=== PATIENT | male | born 1985 | race Caucasian/White ===

== ENCOUNTER 2020-05-26 20:10 | Emergency (ER) | payer BC ==
[2020-05-26] MEDS ORDERED: Bacitracin Oint 1 GM U/D Packet TOP ONE (20:38)
[2020-05-26] MEDS ORDERED: Lidocaine 1% with EPINEPHrine 1:100,000 50 ML MDV INFILT ONE (20:38)
[2020-05-26] MEDS ORDERED: Diphtheria,Pertussis(Acell),Tetanus Vaccine 0.5 ML SDV IM ONE (20:38)
--- NOTE | 2020-05-26 20:55 | EDM.PDOC ---
ED HPI GENERAL MEDICAL PROBLEM - General Chief Complaint: Laceration Stated Complaint: CUT L THUMB Time Seen by Provider: 05/26/20 20:24 Source of Information: Reports: Patient History Limitations: Reports: No Limitations - History of Present Illness INITIAL COMMENTS - FREE TEXT/NARRATIVE: 34 yo male presents to ER with laceration to the tip of his left thumb. generally healthy. needs tetanus updated - Related Data Allergies Allergy/AdvReac Type Severity Reaction Status Date / Time No Known Allergies Allergy Verified 05/26/20 20:29 Home Meds: Home Meds NK [No Known Home Meds] 05/26/20 [History] Past Medical History HEENT History: Reports: None Cardiovascular History: Reports: None Respiratory History: Reports: None Gastrointestinal History: Reports: None Genitourinary History: Reports: None Musculoskeletal History: Reports: Fracture Neurological History: Reports: None Psychiatric History: Reports: None Endocrine/Metabolic History: Reports: None Hematologic History: Reports: None Immunologic History: Reports: None Oncologic (Cancer) History: Reports: None Dermatologic History: Reports: None - Infectious Disease History Infectious Disease History: Reports: None Social & Family History - Tobacco Use Smoking Status *Q: Never Smoker - Caffeine Use Caffeine Use: Reports: Coffee, Energy Drinks, Soda, Tea - Recreational Drug Use Recreational Drug Use: No ED ROS GENERAL - Review of Systems Review Of Systems: See Below Constitutional: Denies: Fever, Chills, Fatigue Respiratory: Denies: Shortness of Breath, Wheezing Cardiovascular: Denies: Chest Pain ED EXAM, SKIN/RASH Exam: See Below Text/Narrative:: exam limited to left hand Exam Limited By: No Limitations General Appearance: Alert, WD/WN, No Apparent Distress Respiratory/Chest: No Respiratory Distress ED SKIN PROCEDURES - Laceration/Wound Repair Left Distal Digit - 1st (Thumb) Appearance: Superficial, Subcutaneous Distal NVT: Neuro & Vascular Intact, No Tendon Injury Anesthetic Type: Local Local Anesthesia - Lidocaine (Xylocaine): 1% with EPI Local Anesthetic Volume: 2cc Skin Prep: Chlorhexidine (Hibiciens), Saline, Sterile Drape Saline Irrigation (cc's): 100 Exploration/Debridement/Repair: Wound Explored, In a Bloodless Field, Explored to Base, Minimal Debridement, No Foreign Material Found Closed with: Sutures Lac/Wound length In cm: 1 Suture Size: 4-0 # of Sutures: 3 Suture Type: Nylon, Interrupted Drain Placement: Yes Sterile Dressing Applied: Nurse Tetanus Status Addressed: Yes Complications: No Course - Vital Signs Last Recorded V/S: Last Vital Signs Temp 36.8 C 05/26/20 20:32 Pulse 90 05/26/20 20:32 Resp 16 05/26/20 20:32 BP 161/90 H 05/26/20 20:32 Pulse Ox 98 05/26/20 20:32 - Orders/Labs/Meds Orders: Active Orders 24 hr Category Date Time Status Vaccines to be Administered [RC] PER UNIT ROUTINE Care 05/26/20 20:38 Active Meds: Medications Discontinued Medications Generic Name Dose Route Start Last Admin Trade Name Robi PRN Reason Stop Dose Admin Bacitracin 1 dose 05/26/20 20:38 05/26/20 20:45 Bacitracin Oint 1 Gm TOP 05/26/20 20:39 1 dose ONETIME ONE Administration Diphtheria/Tetanus/Acell Pertussis 0.5 ml 05/26/20 20:38 05/26/20 20:44 Adacel IM 05/26/20 20:39 0.5 ml .ONCE ONE Administration Lidocaine/Epinephrine 3 ml 05/26/20 20:38 05/26/20 20:45 Xylocaine 1% With Epinephrine 1:100,000 INFILT 05/26/20 20:39 50 ml ONETIME ONE Administration Departure - Departure Time of Disposition: 20:53 Disposition: Home, Self-Care 01 Condition: Good Clinical Impression: Thumb laceration Qualifiers: Encounter type: initial encounter Damage to nail status: with damage Foreign body presence: without foreign body Laterality: left Qualified Code(s): S61.112A - Laceration without foreign body of left thumb with damage to nail, initial encounter - Discharge Information *PRESCRIPTION DRUG MONITORING PROGRAM REVIEWED*: Not Applicable *COPY OF PRESCRIPTION DRUG MONITORING REPORT IN PATIENT MINNA: Not Applicable Instructions: Sutured Wound Care, [id number] Referrals: PCP,None [Primary Care Provider] - Forms: ED Department Discharge Additional Instructions: ice for pain control sutures out in 5-7 days keep dry tonight thereafter wash with warm soapy water keep clean observe for signs of infection - fire engine red, increase increase in pain, purulent drainage Sepsis Event Note (ED) - Evaluation Sepsis Screening Result: No Definite Risk - Focused Exam Vital Signs: Vital Signs Temp Pulse Resp BP Pulse Ox 05/26/20 20:32 36.8 C 90 16 161/90 H 98 05/26/20 20:30 36.8 C 90 16 161/90 H 98 - My Orders Last 24 Hours: My Active Orders 05/26/20 20:38 Vaccines to be Administered [RC] PER UNIT ROUTINE - Assessment/Plan Last 24 Hours: My Active Orders 05/26/20 20:38 Vaccines to be Administered [RC] PER UNIT ROUTINE
== END 2020-05-26 21:02 | disposition home or self-care (01) ==
LOC: JP.ED 20:10
DX: S61.112A Laceration without foreign body of left thumb with damage to nail, initial encounter (principal); Z23 Encounter for immunization; W26.0XXA Contact with knife, initial encounter
CPT/HCPCS: 12001; 90471; 90715; 99282; 99282-25